=== PATIENT | female | born 1980 | race Caucasian/White ===

== ENCOUNTER 2021-12-30 19:16 | Emergency (ER) | payer MEDICAID ==
[~2021-12-30] VITALS: Ht 160 cm; Wt 73.0 kg
[2021-12-30 20:41] LABS: BASOPHILS % 0.5 % (0.0-2.0); EOSINOPHILS % 1.5 % (0.0-5.0); HEMATOCRIT. 35.4 % (36.0-48.0); HEMOGLOBIN. 12.4 g/dL (12.0-16.0); LYMPHOCYTES % 23.4 % (20.0-50.0); MEAN CORPUSCULAR HEMOGLOBIN 28.8 pg (28.0-32.0); MEAN CORPUSCULAR VOLUME 82.3 fL (81.0-99.0); MONOCYTES % 5.5 % (2.0-8.0); NEUTROPHILS % 69.1 % (40.0-76.0); PLATELET 325 x1000/uL (130-400); RED CELL DISTRIBUTION WIDTH 13.1 % (11.6-14.6)
[2021-12-30 20:51] LABS: CHLORIDE 110 mEq/L (98-107)
[2021-12-30 20:53] LABS: HCG SCREEN NEGATIVE
[2021-12-30 20:55] LABS: ETHANOL BLOOD < 10 mg/dL
[2021-12-30 21:56] LABS: CLARITY URINE CLEAR (CLEAR); COLOR URINE YELLOW (YELLOW); KETONES URINE TRACE (NEGATIVE); LEUKOCYTE ESTERASE URINE TRACE (NEGATIVE); NITRITE URINE NEGATIVE (NEGATIVE); OCCULT BLOOD URINE NEGATIVE (NEGATIVE); PROTEIN URINE TRACE (NEGATIVE); SPECIFIC GRAVITY URINE 1.027 (1.005-1.030)
[2021-12-30] MEDS ORDERED: MAGNESIUM/ALUMINUM HYDROXIDE/SIMETHICONE 30ML UDC PO STA (22:15)
[2021-12-30] MEDS ORDERED: MORPHINE SULFATE 4 MG/ML CPJ (NOT FOR IM USE) IV STA (22:15)
[2021-12-30] MEDS ORDERED: SODIUM CHLORIDE 0.9% 1,000 ML IV ONE (22:15)
[2021-12-30 22:18] LABS: *AMPHETAMINES SCREEN URINE NEGATIVE (NEGATIVE); *BARBITURATES SCREEN URINE NEGATIVE (NEGATIVE); *BENZODIAZEPINES SCREEN URINE NEGATIVE (NEGATIVE); *COCAINE SCREEN URINE NEGATIVE (NEGATIVE); METHADONE URINE SCREEN NEGATIVE (NEGATIVE); OPIATES URINE SCREEN NEGATIVE (NEGATIVE)
[2021-12-30 22:19] LABS: CANNABINOID URINE SCREEN NEGATIVE (NEGATIVE); PHENCYCLIDINE URINE SCREEN NEGATIVE (NEGATIVE)
[2021-12-30 22:47] VITALS: BP 154/105
== END 2021-12-31 01:17 | disposition home or self-care (01) ==
LOC: ER 19:16
DX: K80.20 Calculus of gallbladder without cholecystitis without obstruction (principal); F41.9 Anxiety disorder, unspecified
CPT/HCPCS: 36415; 76700; 80053; 80305; 80320; 81003; 83690; 84484; 84703; 85025; 93005; 96361; 96374; 99285; J2270; J7030; G0480

== ENCOUNTER 2022-02-22 07:31 | Emergency (ER) | payer MEDICAID ==
[~2022-02-22] VITALS: Ht 170.2 cm; Wt 68.0 kg
[2022-02-22] MEDS ORDERED: MORPHINE SULFATE 4 MG/ML CPJ (NOT FOR IM USE) IV STA (07:49)
[2022-02-22] MEDS ORDERED: ONDANSETRON HCL 4MG/2ML INJ IV STA (07:49)
[2022-02-22 08:20] LABS: BASOPHILS % 0.4 % (0.0-2.0); EOSINOPHILS % 0.7 % (0.0-5.0); HEMATOCRIT. 35.9 % (36.0-48.0); HEMOGLOBIN. 12.1 g/dL (12.0-16.0); MEAN CORPUSCULAR HEMOGLOBIN 27.6 pg (28.0-32.0); MEAN CORPUSCULAR VOLUME 82.1 fL (81.0-99.0); MEAN PLATELET VOLUME 7.8 fl (7.4-10.4); MONOCYTES % 4.8 % (2.0-8.0); NEUTROPHILS % 65.1 % (40.0-76.0); PLATELET 379 x1000/uL (130-400); RED BLOOD CELL COUNT 4.37 mill/uL (4.2-5.4)
[2022-02-22 08:26] LABS: CHLORIDE 111 mEq/L (98-107)
[2022-02-22 08:28] LABS: HCG SCREEN NEGATIVE
[2022-02-22] MEDS ORDERED: ONDA4TAB5 PO (10:49)
[2022-02-22] MEDS ORDERED: T3 PO (10:49)
[2022-02-22 10:55] VITALS: BP 102/77
== END 2022-02-22 11:03 | disposition home or self-care (01) ==
LOC: ER 07:34
DX: K80.20 Calculus of gallbladder without cholecystitis without obstruction (principal); D72.829 Elevated white blood cell count, unspecified; F41.9 Anxiety disorder, unspecified
CPT/HCPCS: 36415; 76705; 80053; 83690; 84703; 85025; 96374; 96375; 99284; J2270; J2405

== ENCOUNTER 2022-08-31 03:52 | Emergency (ER) | payer MEDICAID ==
[~2022-08-31] VITALS: Ht 160 cm; Wt 64.0 kg
[~2022-08-31 03:52] MED LIST: ONDA4TAB5 PO; T3 PO
[2022-08-31 04:01] VITALS: BP 125/70
== END 2022-08-31 06:00 | disposition left against medical advice (07) ==
LOC: ER 03:52
DX: Z53.21 Procedure and treatment not carried out due to patient leaving prior to being seen by health care provider (principal)